=== PATIENT | female | born 1985 | race Hispanic/Latino ===

== ENCOUNTER 2019-02-26 15:24 | Emergency (ER) | payer SELFPAY ==
[2019-02-26 15:25] VITALS: BP 137/85; PULSE 96; RESP 20; TEMP 36.8; O2SAT 100; BMI 30.1
--- NOTE | 2019-02-26 15:47 | EKG12_ITS ---
Test Reason : CP Blood Pressure : / mmHG Vent. Rate : 100 BPM Atrial Rate : 100 BPM P-R Int : 142 ms QRS Dur : 084 ms QT Int : 348 ms P-R-T Axes : 051 012 058 degrees QTc Int : 448 ms Normal sinus rhythm Low voltage QRS Nonspecific ST and T wave abnormality Abnormal ECG Confirmed by CHALINO TREADWELL, CINDY ([id number]), order editor XIMENA SALTER ([id number]) on 03/01/2019 11:50:07 AM Referred By: MEGHANA Confirmed By:CINDY ALLRED MD
--- NOTE | 2019-02-26 15:48 | ED.DCSUM_ITS ---
- ER Visit Summary Date of Service: 02/26/19 Chief Complaint: Chest pain History of Present Illness: The patient is a 33 F who presents with chest pain that began yesterday. Patient states the pain waxes and wanes. Patient describes the pain as a tightness and stabbing. Patient states the pain is all diffusely across her chest. Patient admits to some nausea but denies any vomiting. Patient admits to some shortness of breath. Patient states she is been having some muscle cramping as well. Patient also admits to some lightheadedness and palpitations. Patient denies any fevers or chills. Patient denies any cough. Patient denies any diaphoresis. Patient was recently started on levothyroxine because her TSH was elevated. Patient admits to some fatigue as well. Physical Examination: Vital signs are stable. Patient is afebrile. Patient is in no acute distress. Oral mucosa is pink and moist. Neck is supple. Trachea is midline. There is no JVD noted. Heart was regular rate and rhythm. Lungs are clear and equal bilateral. Abdomen is soft. Bowel sounds are normal. There is no tenderness. There is no guarding noted. Skin is warm dry. Cranial nerves II through XII are intact. There are no focal motor or sensory deficits noted. Test Results: EKG showed sinus rhythm with a rate of 100. There are no acute ST or T wave changes. PA and lateral chest x-ray was obtained. There is no acute cardiopulmonary process. CBC showed a slight anemia with a hemoglobin of 11.8 and hematocrit 34.4. Basic metabolic profile showed a creatinine of 1.17 and a potassium of 3.3. Troponin was normal. D-dimer was normal. TSH was 73 which is increased from the TSH obtained at the primary care office earlier this week. Emergency Department Course and Treatment: Patient was feeling somewhat better o n reevaluation. Patient has a HEART score of 2. Case was discussed with [facility] physician on-call. He recommended increasing the levothyroxine to 50 mcg/day. Patient will follow-up as an outpatient next week. Patient understood and was agreeable with the plan. All questions were answered. Disposition: Discharge home Impression: 1. Chest pain 2. Hypothyroidism This note was generated with [employer] software. It may contain incorrect words, spelling, and punctuation that were not noted in review of the chart prior to signing ED Disposition - Plan for ED Patient: Disposition: Home or Assisted Living Diagnosis: Chest pain, Hypothyroid Instructions: Hypothyroidism Referrals: Lissette Whitt ADVERTISING DIRECTOR-C [Primary Care Provider] - 3-5 Days
[2019-02-26 15:58] LABS: Absolute Lymphocyte Count 1.56 X10^3/uL (0.83-4.51); Absolute Neutrophil Count 4.1 X10^3/uL (2.0-7.7); Basophil# 0.02 X10^3/uL; Basophil% 0.3 % (0-1); Eosinophil# 0.09 X10^3/uL; Eosinophils% 1.5 % (0-5); Hematocrit 34.4 % (37-47); Hemoglobin 11.8 g/dL (12.0-15.0); Lymphocyte # 1.56 X10^3/ul (4.0); Lymphocyte % 25.4 % (19-41); Mean Corp Hgb Conc 34.3 g/dL (32-36); Mean Corpuscular Hgb 33.2 pg (27.0-32.0); Mean Corpuscular Volume 96.9 fL (81-99); Mean Platelet Vol. 11.5 fl (6.2-12.0); Monocyte# 0.32 X10^3/uL; Monocyte% 5.2 % (0-10); NRBC Flagged by Analyzer 0 % (0-5); Neutrophil # 4.13 X10^3/uL (2.7-7.7); Neutrophil % 67.1 % (47-70); Platelet Count 141 K/mm3 (150-450); RBC Distribution Width CV 13.2 % (11.6-14.6); RBC Distribution Width SD 46.9 fl (35.1-43.9); Red Blood Count 3.55 M/mm3 (4.2-5.4); White Blood Count 6.2 K/mm3 (4.4-11.0)
[2019-02-26] MEDS: 0.9% Normal Saline 1,000 ML 1000 ML IV (16:00)
[2019-02-26 16:01] LABS: International Normalized Ratio 1.1; Prothrombin Time (Protime)PT. 13.7 SECONDS (11.7-14.9)
[2019-02-26 16:02] LABS: Partial Thromboplast Time 31.9 Seconds (24.1-36.2)
[2019-02-26 16:06] LABS: D-Dimer Quantitative (DVT/PE) 0.34 FEU/ug/m (0.27-0.49)
--- NOTE | 2019-02-26 16:16 | RAD_ITS ---
STUDY: X-RAY CHEST REASON FOR EXAM: Female, 33 years old. Chest pain TECHNIQUE: Frontal and lateral views of the chest. COMPARISON: None. FINDINGS: The lungs are clear and expanded. There is no demonstrated pleural abnormality. Normal size heart. Normal mediastinum and chirag. Normal visualized pulmonary arteries. Normal visualized aortic arch and descending thoracic aorta. Normal visualized thoracic spine. Normal visualized ribs, clavicles, and shoulders. There is no demonstrated abnormality of the visualized soft tissue structures of the upper abdomen. RAD/Chest PA and Lateral IMPRESSION: Normal x-ray examination of the chest. Electronically Signed: Kwadwo Christian MD at 16:28 EDT Tel , Service support ,
[2019-02-26 16:17] LABS: Anion Gap 9 (5-15); BUN 10 mg/dL (7-18); BUN/Creat Ratio 8.5 RATIO (10-20); Calcium,Total 8.9 mg/dL (8.5-10.1); Chloride 106 mmol/L (98-107); Creatinine, Serum 1.17 mg/dL (0.55-1.02); EST Glomerular Filtration Rate 57 mL/min (>60); Est Glom Filt Rate - Afr Amer 69 mL/min (>60); Estimated Creatinine Clearance 65.22 ml/min; Glucose 105 mg/dL (74-106); Potassium 3.3 mmol/L (3.5-5.1); Sodium Level 138 mmol/L (136-145)
[2019-02-26 16:24] LABS: Internal QC Validated? YES +Cl - CLEAR BKGD; Pregnancy, Serum, hCG Quali. NEGATIVE Negative
[2019-02-26 18:16] VITALS: BP 118/74; PULSE 72; RESP 16; O2SAT 99
[2019-02-26 19:29] VITALS: BP 104/74; PULSE 79; RESP 16; O2SAT 100
== END 2019-02-26 19:47 | disposition home or self-care (01) ==
PROVIDERS: Emergency Provider Emergency Medicine; Family Provider Nurse Practitioner Primary Care; PCP Nurse Practitioner Primary Care
DX: R07.9 Chest pain, unspecified (principal); E03.9 Hypothyroidism, unspecified; E66.9 Obesity, unspecified; Z68.30 Body mass index [BMI] 30.0-30.9, adult; Z87.891 Personal history of nicotine dependence
CPT/HCPCS: 71046; 80048; 84443; 84484; 84703; 85025; 85379; 85610; 85730; 93005; 96360; 96361; 99284; J7030; A4216